=== PATIENT | female | born 2000 | race Caucasian/White ===

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

== ENCOUNTER 2019-03-07 20:47 | Emergency (ER) | payer OTHER ==
[2019-03-07 21:05] VITALS: BP 106/66
[2019-03-07] MEDS ORDERED: Amoxicillin/Clavulanate TAB* 875 MG PO ONE (21:23)
--- NOTE | 2019-03-07 21:25 | UC ---
Throat Pain/Nasal [place] HPI - HPI Summary HPI Summary: 18-year-old female comes in with a chief complaint of sore throat for 1 day. Hurts more when she swallows. She took some lygf-bsf-gpdquya medicine which did help with the pain some. No runny nose no chest congestion. No shortness breath. - History of Current Complaint Chief Complaint: UCRespiratory Stated Complaint: SORE THROAT Time Seen by Provider: 03/07/19 21:20 Hx Last Menstrual Period: pt is on depo provera and states not getting a menses Pain Intensity: 5 - Allergies/Home Medications Allergies/Adverse Reactions: Allergies Allergy/AdvReac Type Severity Reaction Status Date / Time No Known Allergies Allergy Verified 03/07/19 21:05 Home Medications: Home Medications Ibuprofen TAB* [Advil TAB*] 400 mg PO Q6H PRN 03/07/19 [History Confirmed ] PMH/Surg Hx/FS Hx/Imm Hx Previously Healthy: Yes - Surgical History Surgical History: Yes Surgery Procedure, Year, and Place: Pyloric stenosis, 2 weeks old - Family History Known Family History: Negative: Cardiac Disease, Hypertension, Diabetes - Social History Alcohol Use: None Substance Use Type: None Smoking Status (MU): Never Smoked Tobacco Review of Systems All Other Systems Reviewed And Are Negative: Yes Constitutional: Positive: Negative Skin: Positive: Negative Eyes: Positive: Negative ENT: Positive: Sore Throat Respiratory: Positive: Negative Cardiovascular: Positive: Negative Gastrointestinal: Positive: Negative Motor: Positive: Negative Neurovascular: Positive: Negative Musculoskeletal: Positive: Negative Neurological: Positive: Negative Psychological: Positive: Negative Is Patient Immunocompromised?: No Physical Exam Triage Information Reviewed: Yes Appearance: No Pain Distress, Well-Nourished, Ill-Appearing - MILD Vital Signs: Initial Vital Signs Temp 99.3 F 03/07/19 21:01 Pulse 92 03/07/19 21:01 Resp 14 03/07/19 21:01 BP 106/66 03/07/19 21:01 Pulse Ox 100 03/07/19 21:01 Vital Signs Reviewed: Yes Eye Exam: Normal Eyes: Positive: Conjunctiva Clear ENT: Positive: TMs normal, Tonsillar swelling - 2+ B/L, Uvula midline, Other - NO PERITONSILLAR ABSCESS Neck: Positive: Supple Respiratory: Positive: Lungs clear, Normal breath sounds, No respiratory distress Cardiovascular: Positive: RRR Musculoskeletal Exam: Normal Musculoskeletal: Positive: Strength Intact, ROM Intact Neurological: Positive: Alert, Muscle Tone Normal Psychological Exam: Normal Psychological: Positive: Age Appropriate Behavior Skin Exam: Normal Throat Pain/Nasal Course/Dx - Differential Dx/Diagnosis Provider Diagnosis: Strep pharyngitis Discharge - Sign-Out/Discharge Documenting (check all that apply): Patient Departure All imaging exams completed and their final reports reviewed: No Studies - Discharge Plan Condition: Stable Disposition: HOME Prescriptions: Amoxicillin PO (*) [Amoxicillin 875 MG (*)] 875 mg PO BID #19 tab Patient Education Materials: Strep Throat (ED) Referrals: [facility] [Outside] Additional Instructions: FOLLOW UP WITH YOUR DOCTOR IF NOT COMPLETELY IMPROVED. GET RECHECKED SOONER IF YOUR CONDITION WORSENS OR ANY QUESTIONS OR CONCERNS. - Billing Disposition and Condition Condition: STABLE Disposition: Home
== END 2019-03-07 21:31 | disposition home or self-care (01) ==
LOC: UCCORT 20:47
DX: J02.0 Streptococcal pharyngitis (principal); B95.0 Streptococcus, group A, as the cause of diseases classified elsewhere
CPT/HCPCS: 87651; 99212; A9270-GY; G0463

== ENCOUNTER 2019-12-17 16:46 | Emergency (ER) | payer OTHER ==
[2019-12-17 17:31] VITALS: BP 121/67
--- NOTE | 2019-12-17 17:47 | UC ---
Throat Pain/Nasal [place] HPI - HPI Summary HPI Summary: sore throat, ear pain, for past 2 day, productive cough today. - History of Current Complaint Chief Complaint: UCGeneralIllness Stated Complaint: SORE THROAT Time Seen by Provider: 12/17/19 17:42 Hx Obtained From: Patient Hx Last Menstrual Period: pt is on depo provera and states not getting a menses ?: No Onset/Duration: Sudden Onset, Lasting Days Severity: Severe Pain Intensity: 7 Associated Signs & Symptoms: Positive: Dysphagia, Sinus Discomfort - Allergies/Home Medications Allergies/Adverse Reactions: Allergies Allergy/AdvReac Type Severity Reaction Status Date / Time No Known Allergies Allergy Verified 12/17/19 17:31 Home Medications: Home Medications medroxyPROGESTERone ACETATE* [DEPO-Provera*] 1 syr INJ ONCE 12/21/18 [History Confirmed 12/17/19] Ibuprofen TAB* [Advil TAB*] 400 mg PO Q6H PRN 03/07/19 [History Confirmed ] Amoxicillin PO (*) [Amoxicillin 875 MG (*)] 875 mg PO BID #20 tab 12/17/19 [Rx] PMH/Surg Hx/FS Hx/Imm Hx Previously Healthy: Yes - Surgical History Surgical History: Yes Surgery Procedure, Year, and Place: Pyloric stenosis, 2 weeks old - Family History Known Family History: Negative: Cardiac Disease, Hypertension, Diabetes - Social History Alcohol Use: None Substance Use Type: None Smoking Status (MU): Never Smoked Tobacco Review of Systems All Other Systems Reviewed And Are Negative: Yes ENT: Positive: Sore Throat Neurological/Mental Status: Positive: Headache Is Patient Immunocompromised?: No Physical Exam Triage Information Reviewed: Yes Appearance: Well-Nourished, Ill-Appearing, Pain Distress Vital Signs: Initial Vital Signs Temp 98.9 F 12/17/19 17:27 Pulse 65 12/17/19 17:27 Resp 16 12/17/19 17:27 BP 121/67 12/17/19 17:27 Pulse Ox 100 12/17/19 17:27 Vital Signs Reviewed: Yes Eye Exam: Normal ENT: Positive: Pharyngeal erythema, TM bulging, TM red Dental Exam: Normal Neck exam: Normal Respiratory Exam: Normal Respiratory: Positive: Chest non-tender, Lungs clear, Normal breath sounds Cardiovascular Exam: Normal Cardiovascular: Positive: RRR, No Murmur, Pulses Normal Abdominal Exam: Normal Bowel Sounds: Positive: Present Musculoskeletal Exam: Normal Neurological Exam: Normal Psychological Exam: Normal Skin Exam: Normal Throat Pain/Nasal Course/Dx - Course Course Of Treatment: hx obtained, exam performed ,meds reviewed, treated for strep - Differential Dx/Diagnosis Differential Diagnosis/HQI/PQRI: Pharyngitis, Sinusitis Provider Diagnosis: Strep pharyngitis Discharge ED - Sign-Out/Discharge All imaging exams completed and their final reports reviewed: No Studies - Discharge Plan Condition: Stable Disposition: HOME Referrals: No Primary Care Phys,NOPCP [Primary Care Provider] - - Billing Disposition and Condition Condition: STABLE Disposition: Home
== END 2019-12-17 17:53 | disposition home or self-care (01) ==
LOC: UCCORT 16:46
DX: J02.0 Streptococcal pharyngitis (principal)
CPT/HCPCS: 87651; 99212; G0463

== ENCOUNTER 2020-01-02 14:41 | Emergency (ER) | payer OTHER ==
[2020-01-02 14:57] VITALS: BP 107/52
--- NOTE | 2020-01-02 15:11 | UC ---
Throat Pain/Nasal [place] HPI - HPI Summary HPI Summary: Hot and cold spells this AM, nausea off/on, pains in mid abdomen, "gas pains" worsened after eating, lightheadedness off/on, - History of Current Complaint Chief Complaint: UCRespiratory Stated Complaint: ST Time Seen by Provider: 01/02/20 14:48 Hx Obtained From: Patient Hx Last Menstrual Period: pt is on depo provera and states not getting a menses ?: No Onset/Duration: Sudden Onset, Lasting Days Severity: Moderate Pain Intensity: 5 Associated Signs & Symptoms: Positive: Dysphagia - Allergies/Home Medications Allergies/Adverse Reactions: Allergies Allergy/AdvReac Type Severity Reaction Status Date / Time No Known Allergies Allergy Verified 01/02/20 14:57 Home Medications: Home Medications medroxyPROGESTERone ACETATE* [DEPO-Provera*] 1 syr INJ ONCE 12/21/18 [History Confirmed 01/02/20] Ibuprofen TAB* [Advil TAB*] 400 mg PO Q6H PRN 03/07/19 [History Confirmed ] Azithromycin TAB* [Zithromax TAB (Z-SOLOMON) 250 mg #6 tabs] 2 tab PO .TODAY, THEN 1 DAILY #1 solomon 01/02/20 [Rx] PMH/Surg Hx/FS Hx/Imm Hx Previously Healthy: Yes - Surgical History Surgical History: Yes Surgery Procedure, Year, and Place: Pyloric stenosis, 2 weeks old - Family History Known Family History: Negative: Cardiac Disease, Hypertension, Diabetes - Social History Alcohol Use: None Substance Use Type: None Smoking Status (MU): Never Smoked Tobacco Review of Systems All Other Systems Reviewed And Are Negative: Yes ENT: Positive: Sore Throat Is Patient Immunocompromised?: No Physical Exam Triage Information Reviewed: Yes Appearance: Well-Nourished, Ill-Appearing, Pain Distress Vital Signs: Initial Vital Signs Temp 98.4 F 01/02/20 14:50 Pulse 80 01/02/20 14:50 Resp 18 01/02/20 14:50 BP 107/52 01/02/20 14:50 Pulse Ox 99 01/02/20 14:50 Vital Signs Reviewed: Yes Eye Exam: Normal ENT: Positive: Pharyngeal erythema - with PND, Nasal congestion, Nasal drainage , Sinus tenderness - under right eye Dental Exam: Normal Neck exam: Normal Respiratory Exam: Normal Respiratory: Positive: Chest non-tender, Lungs clear, Normal breath sounds Cardiovascular Exam: Normal Abdominal Exam: Normal Bowel Sounds: Positive: Present Musculoskeletal Exam: Normal Neurological Exam: Normal Psychological Exam: Normal Skin Exam: Normal Throat Pain/Nasal Course/Dx - Course Course Of Treatment: hx obtained, exam performed ,meds reviewed, rapid strep obtained and is negative - Differential Dx/Diagnosis Differential Diagnosis/HQI/PQRI: Laryngitis, Pharyngitis, Sinusitis Provider Diagnosis: Sinusitis Discharge ED - Sign-Out/Discharge Documenting (check all that apply): Patient Departure All imaging exams completed and their final reports reviewed: No Studies - Discharge Plan Condition: Stable Disposition: HOME Prescriptions: Azithromycin TAB* [Zithromax TAB (Z-SOLOMON) 250 mg #6 tabs] 2 tab PO .TODAY, THEN 1 DAILY #1 solomon Patient Education Materials: Sinusitis (ED) Referrals: No Primary Care Phys,NOPCP [Primary Care Provider] - Additional Instructions: 1. take the medication as prescribed. 2. Increase fluid intake and get rest 3. Decongestant daily can also help with your symtpoms - Billing Disposition and Condition Condition: STABLE Disposition: Home
== END 2020-01-02 15:25 | disposition home or self-care (01) ==
LOC: UCCORT 14:41
DX: J32.9 Chronic sinusitis, unspecified (principal); J02.9 Acute pharyngitis, unspecified
CPT/HCPCS: 87651; 99212; G0463